=== PATIENT | male | born 1965 | race Caucasian/White ===

== ENCOUNTER 2017-05-06 13:13 | Inpatient (IN) | payer OTHER ==
[~2017-05-06] VITALS: Ht 172.7 cm; Wt 93.0 kg
[~2017-05-06 13:13] MED LIST: ALD50 PO; AMBIEN10 MG PO; ATENOLOL25 MG PO; ATIVAN2 MG PO; BENTYL10 MG PO; CATAPRES0.1 MG PO; FERL PO; IMO2 PO; IND20 PO; LAC30L PO; LASIX20 MG PO; MOTRIN600 MG PO; MP PO; ROBAXIN-750750 MG PO; SER25 PO; SEROQUEL100 MG PO; SEROQUEL200 MG PO; TRA50 PO; TYLENOL325 MG PO; VITABESE1 CAP PO
[2017-05-06 21:56] LABS: CALCIUM 8.2 mg/dL (8.5-10.1); CARBON DIOXIDE 26.7 mmol/L (21-32); CHLORIDE SERUM 101 mmol/L (98-107); CREATININE SERUM 0.8 mg/dL (0.7-1.3); GFR1 > 60 mL/min; GLUCOSE SERUM 168 mg/dL (74-106); POTASSIUM SERUM 4.1 mmol/L (3.5-5.1); SODIUM SERUM 137 mmol/L (136-145)
[2017-05-06 22:01] LABS: ALKALINE PHOSPHATASE 88 U/L (46-116); ALT/SGPT 50 U/L (16-63); AST/SGOT 52 U/L (15-37); BILIRUBIN TOTAL 0.7 mg/dL (0.20-1.00); TOTAL PROTEIN, SERUM 7.9 g/dL (6.4-8.2)
[2017-05-06 22:02] LABS: ALBUMIN 3.2 g/dL (3.4-5.0)
[2017-05-06 22:14] LABS: RED CELL DISTRIBUTION WIDTH 16.9 % (11.5-14.5)
[2017-05-06 22:15] LABS: PLATELET COUNT 40 x10^3mcL (130-400)
[2017-05-06 22:32] LABS: BAND NEUTROPHIL 0 % (0-10); BASOPHIL 0 % (0-2); MONOCYTE 5 % (0-7); SEGMENTED NEUTROPHILS 37 % (37-75)
[2017-05-06 22:33] LABS: PLATELET MORPHOLOGY PLATELETS DECREASED; rbc morphology (normal/abnorm) ABNORMAL (NORMAL)
[2017-05-06] MEDS ORDERED: FUROSEMIDE20 MG PO (23:13)
[2017-05-06] MEDS ORDERED: ATENOLOL25 MG PO (23:14)
[2017-05-06] MEDS ORDERED: SEROQUEL100 MG PO (23:14)
[2017-05-07 00:35] VITALS: BP 123/68
[2017-05-07 02:58] LABS: PHOSPHOROUS 2.8 mg/dL (2.5-4.9)
[2017-05-07 03:06] LABS: CHOLESTEROL/HDL RATIO 2.6
[2017-05-07 07:40] LABS: CALCIUM 8.1 mg/dL (8.5-10.1); CARBON DIOXIDE 26.7 mmol/L (21-32); CHLORIDE SERUM 106 mmol/L (98-107); CREATININE SERUM 0.7 mg/dL (0.7-1.3); GFR1 > 60 mL/min; GLUCOSE SERUM 138 mg/dL (74-106); PHOSPHOROUS 3.3 mg/dL (2.5-4.9); POTASSIUM SERUM 4.2 mmol/L (3.5-5.1); SODIUM SERUM 140 mmol/L (136-145)
[2017-05-07 08:09] LABS: TOTAL IRON BINDING CAPACITY 297 ug/dL (250-450)
[2017-05-07 08:19] LABS: IRON 19 ug/dL (65-170)
[2017-05-07 08:20] LABS: FREE T4 1.05 ng/dL (0.76-1.46); FREE THYROXINE INDEX 2.4 ug/dL (1.4-4.5); T4(THYROXINE) 6.8 ug/dL (4.7-13.3)
[2017-05-07 08:26] LABS: T3 TOTAL 0.93 ng/mL
[2017-05-07 08:41] VITALS: Ht 172.7 cm; Wt 93.0 kg
[2017-05-07 09:21] LABS: RED BLOOD CELLS 3.22 M/mm3 (4.52-5.90)
[2017-05-07 09:24] VITALS: BP 106/58
[2017-05-07 10:21] LABS: UA SPECIFIC GRAVITY 1.015 (1.005-1.035); microscopic required? YES; urine erythrocyte TRACE (NEGATIVE)
[2017-05-07 10:27] LABS: AMPHETAMINE QUAL UR NONE DETECTED (NEG <=1000)
[2017-05-07 11:26] LABS: RED CELL DISTRIBUTION WIDTH 16.6 % (11.5-14.5)
[2017-05-07 12:28] LABS: SEGMENTED NEUTROPHILS 70 % (37-75)
[2017-05-07 12:29] LABS: ATYPICAL LYMPH 2 %; BAND NEUTROPHIL 2 % (0-10); BASOPHIL 0 % (0-2); MONOCYTE 6 % (0-7); PLATELET MORPHOLOGY D; rbc morphology (normal/abnorm) ABNORMAL (NORMAL)
[2017-05-07 13:54] VITALS: BP 121/65
[2017-05-07 14:28] LABS: PLATELET COUNT 41 x10^3mcL (130-400)
[2017-05-07 17:00] VITALS: BP 120/69
[2017-05-07 21:13] VITALS: BP 106/56
[2017-05-08 04:41] VITALS: BP 120/55
[2017-05-08 07:38] LABS: CALCIUM 7.9 mg/dL (8.5-10.1); CARBON DIOXIDE 24.1 mmol/L (21-32); CHLORIDE SERUM 107 mmol/L (98-107); CREATININE SERUM 0.8 mg/dL (0.7-1.3); GFR1 > 60 mL/min; GLUCOSE SERUM 169 mg/dL (74-106); POTASSIUM SERUM 3.4 mmol/L (3.5-5.1); SODIUM SERUM 141 mmol/L (136-145)
[2017-05-08 07:41] LABS: PLATELET COUNT 48 x10^3mcL (130-400); RED CELL DISTRIBUTION WIDTH 15.6 % (11.5-14.5)
[2017-05-08 08:26] VITALS: BP 122/62
[2017-05-08 10:19] LABS: ATYPICAL LYMPH 2 %; BAND NEUTROPHIL 0 % (0-10); BASOPHIL 0 % (0-2); MONOCYTE 6 % (0-7); SEGMENTED NEUTROPHILS 72 % (37-75)
[2017-05-08 10:21] LABS: PLATELET MORPHOLOGY PLATELETS DECREASED; ovalocyte/elliptocyte 1+; rbc morphology (normal/abnorm) ABNORMAL (NORMAL)
[2017-05-08 13:25] VITALS: BP 153/77
[2017-05-08 17:57] VITALS: BP 124/61
[2017-05-08 21:18] VITALS: BP 122/53
[2017-05-09 05:51] VITALS: BP 120/60
[2017-05-09 10:13] VITALS: BP 130/64
[2017-05-09 13:04] VITALS: BP 141/66
[2017-05-09 15:44] LABS: CALCIUM 7.9 mg/dL (8.5-10.1); CARBON DIOXIDE 23.3 mmol/L (21-32); CHLORIDE SERUM 108 mmol/L (98-107); CREATININE SERUM 0.9 mg/dL (0.7-1.3); GFR1 > 60 mL/min; GLUCOSE SERUM 218 mg/dL (74-106); POTASSIUM SERUM 4.3 mmol/L (3.5-5.1); SODIUM SERUM 141 mmol/L (136-145)
[2017-05-09 16:55] VITALS: BP 142/68
[2017-05-09 18:28] LABS: PLATELET COUNT 45 x10^3mcL (130-400)
[2017-05-10] MEDS ORDERED: NOR10T PO (15:06)
== END 2017-05-09 18:45 | disposition home or self-care (01) | DRG 280 ==
LOC: ED 13:13 → DU 22:58
PROVIDERS: Emergency Medicine; Internal Medicine Gastroenterology; ADMIT Family Medicine
PROC: 0DJ08ZZ Inspection of Upper Intestinal Tract, Via Natural or Artificial Opening Endoscopic (ICD-10-PCS; principal; 2017-05-07 10:30)
PROC: 0DJD8ZZ Inspection of Lower Intestinal Tract, Via Natural or Artificial Opening Endoscopic (ICD-10-PCS; 2017-05-08)
PROC: 06L38CZ Occlusion of Esophageal Vein with Extraluminal Device, Via Natural or Artificial Opening Endoscopic (ICD-10-PCS; 2017-05-08 12:30)
DX: K70.30 Alcoholic cirrhosis of liver without ascites (principal); I85.11 Secondary esophageal varices with bleeding; D61.818 Other pancytopenia; K76.6 Portal hypertension; E44.0 Moderate protein-calorie malnutrition; D69.6 Thrombocytopenia, unspecified; E11.65 Type 2 diabetes mellitus with hyperglycemia; F31.5 Bipolar disorder, current episode depressed, severe, with psychotic features; D50.9 Iron deficiency anemia, unspecified; R16.1 Splenomegaly, not elsewhere classified; F11.10 Opioid abuse, uncomplicated; I10 Essential (primary) hypertension; B18.2 Chronic viral hepatitis C; F10.10 Alcohol abuse, uncomplicated; F39 Unspecified mood [affective] disorder; F17.210 Nicotine dependence, cigarettes, uncomplicated; Z68.31 Body mass index [BMI] 31.0-31.9, adult
CPT/HCPCS: 43235; 82962; 83880; 84439; 85378; 90658; 99406; J1200; J1610; J2250; J2310; J2354; J2405; J2704; J3010; J3490; J7030; J7040; Q0092

== ENCOUNTER 2018-03-21 14:40 | Inpatient (IN) | payer OTHER ==
[~2018-03-21] VITALS: Ht 172.7 cm; Wt 87.7 kg
[2018-03-21] VITALS (8 sets, daily range): BP systolic 88–131; BP diastolic 44–66; Ht 172.7 cm; Wt 87.7 kg
[~2018-03-21 14:40] MED LIST changes: +FUROSEMIDE20 MG PO; +NOR10T PO
[2018-03-21 16:49] LABS: ALKALINE PHOSPHATASE 66 U/L (46-116); ALT/SGPT 37 U/L (16-63); AMYLASE 30 U/L (25-115); AST/SGOT 50 U/L (15-37); BILIRUBIN TOTAL 0.62 mg/dL (0.20-1.00); CALCIUM 8.1 mg/dL (8.5-10.1); CARBON DIOXIDE 23.9 mmol/L (21-32); CHLORIDE SERUM 112 mmol/L (98-107); CREATININE SERUM 0.7 mg/dL (0.7-1.3); GFR1 > 60 mL/min; GLUCOSE SERUM 191 mg/dL (74-106); LIPASE 103 IU/L (73-393); POTASSIUM SERUM 4.1 mmol/L (3.5-5.1); SODIUM SERUM 144 mmol/L (136-145); TOTAL PROTEIN, SERUM 7.2 g/dL (6.4-8.2)
[2018-03-21 16:55] LABS: ALBUMIN 2.6 g/dL (3.4-5.0)
[2018-03-21 17:16] LABS: BASOPHIL % 0.4 % (0-2)
[2018-03-21 17:19] LABS: RED CELL DISTRIBUTION WIDTH 19.2 % (11.5-14.5)
[2018-03-21 17:29] LABS: RED BLOOD CELLS 2.95 M/mm3 (4.52-5.90)
[2018-03-21 17:33] LABS: TOTAL IRON BINDING CAPACITY 319 ug/dL (250-450)
[2018-03-21 17:37] LABS: microscopic required? NO
[2018-03-21 17:37] LABS: rbc morphology (normal/abnorm) ABNORMAL (NORMAL)
[2018-03-21 17:39] LABS: ovalocyte/elliptocyte 1+
[2018-03-21 17:41] LABS: PLATELET COUNT 91 x10^3mcL (130-400)
[2018-03-21 17:41] LABS: IRON 15 ug/dL (65-170)
[2018-03-21 17:54] LABS: UA SPECIFIC GRAVITY 1.025 (1.005-1.035); urine erythrocyte NEGATIVE (NEGATIVE)
[2018-03-21 18:02] LABS: T3 TOTAL 0.94 ng/mL
[2018-03-21 18:03] LABS: AMPHETAMINE QUAL UR NONE DETECTED (See below)
[2018-03-21 18:15] LABS: PHOSPHOROUS 3.2 mg/dL (2.5-4.9)
[2018-03-21 18:31] LABS: FREE THYROXINE INDEX 1.4 ug/dL (1.4-4.5); T4(THYROXINE) 4.5 ug/dL (4.7-13.3)
[2018-03-22] VITALS (9 sets, daily range): BP systolic 89–124; BP diastolic 43–94
[2018-03-22 06:31] LABS: CALCIUM 7.6 mg/dL (8.5-10.1); CARBON DIOXIDE 24.3 mmol/L (21-32); CHLORIDE SERUM 110 mmol/L (98-107); CREATININE SERUM 0.7 mg/dL (0.7-1.3); GFR1 > 60 mL/min; GLUCOSE SERUM 162 mg/dL (74-106); MAGNESIUM 1.9 mg/dL (1.8-2.4); PHOSPHOROUS 3.2 mg/dL (2.5-4.9); POTASSIUM SERUM 3.9 mmol/L (3.5-5.1); SODIUM SERUM 141 mmol/L (136-145)
[2018-03-22 07:54] LABS: BASOPHIL % 0.5 % (0-2)
[2018-03-22 07:55] LABS: PLATELET COUNT 66 x10^3mcL (130-400)
[2018-03-22 12:29] LABS: ovalocyte/elliptocyte 1+; rbc morphology (normal/abnorm) ABNORMAL (NORMAL)
[2018-03-23 01:22] LABS: RED CELL DISTRIBUTION WIDTH 27.1 % (11.5-14.5)
[2018-03-23 01:23] LABS: PLATELET COUNT 47 x10^3mcL (130-400)
[2018-03-23 01:33] LABS: BAND NEUTROPHIL 4 % (0-10); METAMYELOCTE 2 % (0-2); MONOCYTE 4 % (0-7); MYELOCYTE 2 % (0-2); SEGMENTED NEUTROPHILS 65 % (37-75)
[2018-03-23 01:35] LABS: rbc morphology (normal/abnorm) ABNORMAL (NORMAL)
[2018-03-23 01:36] LABS: PLATELET MORPHOLOGY PLATELETS DECREASED; ovalocyte/elliptocyte 1+
[2018-03-23 05:34] VITALS: BP 114/57
[2018-03-23 07:01] LABS: CALCIUM 7.7 mg/dL (8.5-10.1); CARBON DIOXIDE 22.3 mmol/L (21-32); CHLORIDE SERUM 112 mmol/L (98-107); CREATININE SERUM 0.7 mg/dL (0.7-1.3); GFR1 > 60 mL/min; GLUCOSE SERUM 133 mg/dL (74-106); MAGNESIUM 1.8 mg/dL (1.8-2.4); POTASSIUM SERUM 3.3 mmol/L (3.5-5.1); SODIUM SERUM 144 mmol/L (136-145)
[2018-03-23 07:26] LABS: PLATELET COUNT 51 x10^3mcL (130-400); RED CELL DISTRIBUTION WIDTH 26.8 % (11.5-14.5)
[2018-03-23 11:51] VITALS: BP 111/50
[2018-03-23 14:05] VITALS: BP 116/52
[2018-03-23 15:19] LABS: BAND NEUTROPHIL 8 % (0-10); MONOCYTE 6 % (0-7); SEGMENTED NEUTROPHILS 67 % (37-75)
[2018-03-23 15:20] LABS: ovalocyte/elliptocyte 1+; rbc morphology (normal/abnorm) ABNORMAL (NORMAL); tear drop cell (dacryocyte) 1+
[2018-03-23 15:21] LABS: PLATELET MORPHOLOGY PLATELETS DECREASED
[2018-03-23 21:13] VITALS: BP 112/67
[2018-03-24 05:30] VITALS: BP 137/68
[2018-03-24 06:50] LABS: CALCIUM 7.4 mg/dL (8.5-10.1); CHLORIDE SERUM 113 mmol/L (98-107); CREATININE SERUM 0.8 mg/dL (0.7-1.3); GFR1 > 60 mL/min; GLUCOSE SERUM 135 mg/dL (74-106); MAGNESIUM 1.8 mg/dL (1.8-2.4); PHOSPHOROUS 2.9 mg/dL (2.5-4.9); SODIUM SERUM 143 mmol/L (136-145)
[2018-03-24 06:54] LABS: POTASSIUM SERUM 2.8 mmol/L (3.5-5.1)
[2018-03-24 08:40] LABS: RED CELL DISTRIBUTION WIDTH 27.6 % (11.5-14.5)
[2018-03-24 09:46] VITALS: BP 147/67
[2018-03-24] MEDS ORDERED: FER300 PO (10:43)
[2018-03-24 12:07] LABS: ATYPICAL LYMPH 2 %; BAND NEUTROPHIL 3 % (0-10); MONOCYTE 5 % (0-7); SEGMENTED NEUTROPHILS 80 % (37-75); rbc morphology (normal/abnorm) ABNORMAL (NORMAL)
[2018-03-24 12:08] LABS: PLATELET MORPHOLOGY PLATELETS DECREASED
[2018-03-24 13:13] VITALS: BP 119/60
[2018-03-24] MEDS ORDERED: IMO2 PO (13:16)
[2018-03-24 14:49] LABS: PLATELET COUNT 43 x10^3mcL (130-400)
[2018-03-24 17:29] VITALS: BP 137/70
[2018-03-24 17:58] VITALS: BP 137/70
== END 2018-03-24 18:41 | disposition home or self-care (01) | DRG 242 ==
LOC: ED 14:40 → DU 16:29
PROVIDERS: Emergency Medicine; Internal Medicine; Internal Medicine Gastroenterology
PROC: 06L38CZ Occlusion of Esophageal Vein with Extraluminal Device, Via Natural or Artificial Opening Endoscopic (ICD-10-PCS; principal; 2018-03-22 10:30)
PROC: 0D568ZZ Destruction of Stomach, Via Natural or Artificial Opening Endoscopic (ICD-10-PCS; 2018-03-22 10:30)
PROC: 30233N1 Transfusion of Nonautologous Red Blood Cells into Peripheral Vein, Percutaneous Approach (ICD-10-PCS; 2018-03-22 10:30)
PROC: 05HM33Z Insertion of Infusion Device into Right Internal Jugular Vein, Percutaneous Approach (ICD-10-PCS; 2018-03-24)
DX: I85.11 Secondary esophageal varices with bleeding (principal); N17.0 Acute kidney failure with tubular necrosis; E43 Unspecified severe protein-calorie malnutrition; K76.6 Portal hypertension; F31.5 Bipolar disorder, current episode depressed, severe, with psychotic features; K74.69 Other cirrhosis of liver; E11.9 Type 2 diabetes mellitus without complications; D50.0 Iron deficiency anemia secondary to blood loss (chronic); K31.819 Angiodysplasia of stomach and duodenum without bleeding; F11.229 Opioid dependence with intoxication, unspecified; I10 Essential (primary) hypertension; Z68.29 Body mass index [BMI] 29.0-29.9, adult
CPT/HCPCS: 43235; 82962; 83880; 84439; C9113; G0480; J1630; J1642; J2001; J2060; J2250; J2270; J2354; J2405; J2916; J3010; J3480; J3490; J7030; J7040; J7060; P9016; Q0092; Q0163

== ENCOUNTER 2020-03-15 22:49 | Emergency (ER) | payer OTHER ==
[~2020-03-15] VITALS: Ht 175.3 cm; Wt 99.8 kg
[~2020-03-15 22:49] MED LIST changes: +FER300 PO
[2020-03-15 22:59] VITALS: Ht 175.3 cm; Wt 99.8 kg
[2020-03-16 02:27] LABS: CALCIUM 8.7 mg/dL (8.5-10.1); CARBON DIOXIDE 30.8 mmol/L (21-32); CHLORIDE SERUM 102 mmol/L (98-107); CREATININE SERUM 0.6 mg/dL (0.7-1.3); GFR1 > 60 mL/min; GLUCOSE SERUM 178 mg/dL (74-106); POTASSIUM SERUM 4.1 mmol/L (3.5-5.1); SODIUM SERUM 134 mmol/L (136-145)
[2020-03-16 02:32] LABS: ALKALINE PHOSPHATASE 89 U/L (46-116); ALT/SGPT 101 U/L (16-63); AST/SGOT 96 U/L (15-37); BILIRUBIN TOTAL 0.97 mg/dL (0.20-1.00); TOTAL PROTEIN, SERUM 7.8 g/dL (6.4-8.2)
[2020-03-16 02:34] LABS: BASOPHIL % 0.3 % (0-2)
[2020-03-16 02:35] LABS: ALBUMIN 3.3 g/dL (3.4-5.0); RED CELL DISTRIBUTION WIDTH 15.7 % (11.5-14.5)
[2020-03-16 02:37] LABS: PLATELET COUNT 25 x10^3mcL (130-400)
[2020-03-16 03:02] VITALS: BP 123/62
== END 2020-03-16 03:05 | disposition home or self-care (01) ==
LOC: ED 22:49
PROVIDERS: Emergency Medicine
DX: L03.115 Cellulitis of right lower limb (principal); I10 Essential (primary) hypertension; F11.10 Opioid abuse, uncomplicated